=== PATIENT | male | born 2005 | race American Indian/Alaskan Native ===

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

== ENCOUNTER 2025-01-27 06:26 | Emergency (ER) | payer OTHER, MEDICAID ==
[~2025-01-27 06:26] MED LIST: 50% Dextrose in Water 50 ML Syringe IVPUSH PRN; Glucagon,Human Recombinant 1 MG Vial IM PRN
[2025-01-27] MEDS: Sodium Chloride 0.9% 1,000 ML IV ONE ×3 (06:26→08:06)
[2025-01-27] MEDS: Insulin Regular, Human 100 Units/ML 10 ML Vial IV ONE ×2 (06:26→12:11)
[2025-01-27 06:36] LABS: HEMATOCRIT 49.3 % (40.0-54.0); HEMOGLOBIN 16.3 g/dL (14.0-18.0); LYMPHOCYTES PERCENT AUTO 12.6 % (20.5-50.1); MEAN CORPUSCULAR HGB CONC 33.1 g/dL (33.0-35.0); MEAN CORPUSCULAR VOLUME 90.6 fL (80-100); MONOCYTES PERCENT AUTO 5.4 % (2-8); O2 DELIVERY DEVICE ROOM AIR; PLATELET COUNT,PLT 330 10^3/uL (150-450); RED BLOOD CELL COUNT 5.44 10^6/uL (4.6-6.2); WHITE BLOOD CELL COUNT,WBC 23.3 10^3/uL (5.0-10.0)
[2025-01-27 06:41] LABS: PCO2 VENOUS 31 mmHg (41-51); PH,VENOUS 7.05 (7.31-7.41); PO2 VENOUS 48 mmHg (35-42)
[2025-01-27 06:42] LABS: BASE EXCESS VENOUS -22.7 mmol/l ((-2)-(+3)); BICARBONATE,VENOUS 8 mmol/l (19-25)
[2025-01-27 07:00] LABS: KETONES,BLOOD MODERATE-40 mg/dL
[2025-01-27 07:10] LABS: ALANINE AMINOTRANSFERASE,ALT 21 U/L (16-63); ALBUMIN 3.9 g/dL (3.4-5.0); ALKALINE PHOSPHATASE 167 U/L (46-116); ASPARTATE AMNIOTRANSFERASE,AST 10 U/L (15-37); BILIRUBIN TOTAL 0.8 mg/dL (0.2-1.0); BLOOD UREA NITROGEN,BUN 21 mg/dL (7-18); CALCIUM 9.5 mg/dL (8.5-10.1); CHLORIDE,CL 90 mmol/L (98-107); CREATININE 1.91 mg/dL (0.70-1.30); LIPASE 10 U/L (16-77); POTASSIUM,K 5.9 mmol/L (3.5-5.1)
[2025-01-27 07:15] LABS: ANION GAP 34.9 mEq/L (7-13); CARBON DIOXIDE,CO2 10 mmol/L (21-32); SODIUM,NA 129 mmol/L (136-145)
[2025-01-27 07:16] LABS: ESTIMATED GFR 51 mL/min (>=60); ETHANOL BLOOD MEDICAL < 3 mg/dL (0); GLUCOSE RANDOM 599 mg/dL (70-99)
[2025-01-27 07:20] LABS: APPEARANCE,URINE CLEAR (CLEAR); BILIRUBIN,URINE NEGATIVE (NEGATIVE); COLOR,URINE LIGHT YELLOW (YELLOW); GLUCOSE,URINE 500 (NEGATIVE); KETONES,URINE >=160 (NEGATIVE); LEUKOCYTE ESTERASE,URINE NEGATIVE (NEGATIVE); NITRITE,URINE NEGATIVE (NEGATIVE); OCCULT BLOOD,URINE TRACE-INTACT (NEGATIVE); PH,URINE 5.5 (5.0-9.0); PROTEIN,URINE 30 (NEGATIVE); UROBILINOGEN,URINE 0.2 mg/dL (0.2-1.0)
[2025-01-27 07:21] LABS: AMPHETAMINES,URINE NEGATIVE (NEGATIVE); BARBITURATES,URINE NEGATIVE (NEGATIVE); BENZODIAZEPINE,URINE NEGATIVE (NEGATIVE); MDMA (ECSTASY), URINE NEGATIVE (NEGATIVE); METHADONE,URINE NEGATIVE (NEGATIVE); METHAMPHETAMINES,URINE NEGATIVE (NEGATIVE); OPIATES,URINE NEGATIVE (NEGATIVE); OXYCODONE,URINE NEGATIVE (NEGATIVE); PHENCYCLIDINE,URINE NEGATIVE (NEGATIVE); TCA,URINE NEGATIVE (NEGATIVE)
[2025-01-27 07:28] LABS: RBC,URINE 0-5 /HPF (0-5)
[2025-01-27 07:29] LABS: BACTERIA,URINE FEW /HPF (0-FEW/HPF); EPITHELIAL CELLS,URINE FEW /HPF (NOT SEEN); MUCUS,URINE RARE /LPF (NOT SEEN)
[2025-01-27 07:30] LABS: YEAST,URINE FEW /HPF (NOT SEEN)
[2025-01-27] MEDS: levETIRAcetam in NaCl (iso-os) 1,000 MG in Premix Bag 1 BAG IV ONE (08:12)
[2025-01-27] MEDS ORDERED: Glucagon,Human Recombinant 1 MG Vial IM PRN ×2 (08:51→11:34)
[2025-01-27] MEDS ORDERED: 50% Dextrose in Water 50 ML Syringe IVPUSH PRN ×2 (08:51→11:34)
[2025-01-27] MEDS: Insulin Regular, Human 100 Units/ML 10 ML Vial SUBCUT ONE (09:01)
[2025-01-27 09:12] LABS: O2 DELIVERY DEVICE ROOM AIR
[2025-01-27 09:16] LABS: BASE EXCESS VENOUS -26.5 mmol/l ((-2)-(+3)); BICARBONATE,VENOUS 6 mmol/l (19-25); O2 SATURATION VENOUS 52.9 % (60-80); PCO2 VENOUS 27 mmHg (41-51); PH,VENOUS 6.97 (7.31-7.41); PO2 VENOUS 42 mmHg (35-42)
[2025-01-27] MEDS: Cefepime 2 GM Vial IVPUSH ONE (09:29)
[2025-01-27 09:38] LABS: LACTIC ACID 2.8 mmol/L (0.4-2.0)
[2025-01-27 09:40] LABS: ANION GAP 33.3 mEq/L (7-13); BLOOD UREA NITROGEN,BUN 20 mg/dL (7-18); CALCIUM 8.4 mg/dL (8.5-10.1); CARBON DIOXIDE,CO2 8 mmol/L (21-32); CHLORIDE,CL 98 mmol/L (98-107); CREATININE 1.82 mg/dL (0.70-1.30); POTASSIUM,K 5.3 mmol/L (3.5-5.1); SODIUM,NA 134 mmol/L (136-145)
[2025-01-27 09:42] LABS: T4 FREE 0.9 ng/dL (0.76-1.46); TSH ULTRASENSITIVE 1.31 uIU/mL (0.36-3.74)
[2025-01-27] MEDS: DEXTROSE 5% IV ONE (09:49)
[2025-01-27] MEDS: SODIUM BICARBONATE IV ONE (09:49)
[2025-01-27] MEDS: WATER IV ONE (09:49)
[2025-01-27 09:51] LABS: ESTIMATED GFR 54 mL/min (>=60); GLUCOSE RANDOM 442 mg/dL (70-99)
[2025-01-27 10:00] LABS: CORONAVIRUS COVID-19 NAA NEGATIVE (NEGATIVE); INFLUENZA A NAA NEGATIVE (NEGATIVE); INFLUENZA B NAA NEGATIVE (NEGATIVE); RESPIRATORY SYNCYTIAL VIR NAA NEGATIVE (NEGATIVE)
[2025-01-27] MEDS: VANCOmycin 1.25 GM in Sodium Chloride 0.9% 250 ML IV ONE (10:09)
[2025-01-27] MEDS ORDERED: Flumazenil 0.1 MG/ML 5 ML MDV IVPUSH PRN (10:25)
[2025-01-27] MEDS: LORazepam 2 MG/ML SDV IVPUSH ONE (10:28)
[2025-01-27] MEDS: Ziprasidone Mesylate 20 MG Vial IM ONE (11:00)
[2025-01-27 11:05] LABS: O2 DELIVERY DEVICE ROOM AIR; PCO2 VENOUS 21 mmHg (41-51)
[2025-01-27 11:07] LABS: BASE EXCESS VENOUS -28.7 mmol/l ((-2)-(+3)); BICARBONATE,VENOUS 4 mmol/l (19-25); O2 SATURATION VENOUS 94.1 % (60-80); PH,VENOUS 6.95 (7.31-7.41); PO2 VENOUS 103 mmHg (35-42)
[2025-01-27] MEDS: Sodium Bicarbonate 8.4% 50 MEQ/50 ML Syringe IVPUSH ONE ×2 (11:10→13:40)
[2025-01-27] MEDS: dexmedeTOMIDine HCl 200 MCG/2 ML SDV IV ONE (11:16)
[2025-01-27] MEDS ORDERED: dexmedeTOMIDine HCl 200 MCG/2 ML SDV IV SCH (11:30)
[2025-01-27] MEDS ORDERED: SODIUM CHLORIDE 0.9% IV SCH (11:30)
[2025-01-27] MEDS ORDERED: DEXMEDETOMIDINE HCL IV SCH (11:30)
[2025-01-27] MEDS ORDERED: Insulin Regular in 0.9 % NACL 100 ML IV SCH (11:30)
[2025-01-27 11:32] LABS: ANION GAP 37.7 mEq/L (7-13); CALCIUM 8.4 mg/dL (8.5-10.1); CREATININE 1.83 mg/dL (0.70-1.30); POTASSIUM,K 5.7 mmol/L (3.5-5.1)
[2025-01-27 11:34] LABS: EST CRCL DRUG DOSING (CG) 64.93 mL/min
[2025-01-27] MEDS: Insulin Regular in 0.9 % NACL 100 ML IV SCH (11:36)
[2025-01-27] MEDS: Norepinephrine Bit/D5W Premix 250 ML IV SCH (11:40)
[2025-01-27] MEDS: Insulin Regular in 0.9 % NACL 100 ML ONE (11:42)
[2025-01-27] MEDS: Sodium Chloride 0.9% 1,000 ML IV SCH (11:42)
[2025-01-27 12:26] LABS: O2 DELIVERY DEVICE ROOM AIR
[2025-01-27 12:30] LABS: BASE EXCESS VENOUS -24.9 mmol/l ((-2)-(+3)); BICARBONATE,VENOUS 4 mmol/l (19-25); O2 SATURATION VENOUS 94.1 % (60-80); PCO2 VENOUS 15 mmHg (41-51); PO2 VENOUS 83 mmHg (35-42)
[2025-01-27] MEDS: Metoprolol Tartrate 5 MG/5 ML SDV ONE (12:54)
[2025-01-27] MEDS: diphenhydrAMINE 50 MG/ML SDV ONE (12:54)
[2025-01-27 12:55] LABS: ANION GAP 35.6 mEq/L (7-13); CALCIUM 8.1 mg/dL (8.5-10.1); CREATININE 1.88 mg/dL (0.70-1.30); EST CRCL DRUG DOSING (CG) 63.2 mL/min; POTASSIUM,K 4.6 mmol/L (3.5-5.1)
[2025-01-27 13:24] LABS: PROTEIN,CSF 40 mg/dL (15-45)
[2025-01-27 13:27] LABS: GLUCOSE,CSF 344 mg/dL (40-70)
[2025-01-27] MEDS: LORazepam 2 MG/ML SDV ONE (13:27)
[2025-01-27] MEDS: Ziprasidone Mesylate 20 MG Vial ONE (13:28)
[2025-01-27] MEDS: VANCOmycin 750 MG in Sodium Chloride 0.9% 250 ML IV ONE (13:33)
[2025-01-27 15:09] LABS: APPEARANCE CSF CLEAR; COLOR,CSF COLORLESS; SUPERNATANT APPEAR,CSF NO XANTHOCHROMIA; TUBE NUMBER,CSF 2
[2025-01-27 15:10] LABS: TUBE VOLUME,CSF 3; WBC,CSF 0
[2025-01-27 15:11] LABS: RBC,CSF 8.25
[2025-01-28] MEDS: Sodium Bicarbonate 8.4% 50 MEQ/50 ML SDV ONE (12:37)
[2025-01-30 18:43] LABS: VDRL, CSF Non Reactive (Non Reactive)
== END 2025-01-27 14:38 ==
LOC: DL.ED 06:26
DX: E10.10 Type 1 diabetes mellitus with ketoacidosis without coma (principal); D72.829 Elevated white blood cell count, unspecified; R41.82 Altered mental status, unspecified; Z79.4 Long term (current) use of insulin; Z79.899 Other long term (current) drug therapy; Z86.16 Personal history of COVID-19
CPT/HCPCS: 0241U; 36415; 36556; 51702; 62270; 70450; 71045; 74176; 80048; 80053; 80164; 80305; 80307; 81001; 82009; 82803; 82945; 82947; 83605; 83690; 83735; 84145; 84157; 84439; 84443; 84484; 85025; 86592; 86788; 87040; 87070; 87102; 87205; 87483; 89050; 93005; 93010; 96361; 96365; 96366; 96367; 96368; 96372; 96375; 96376; 99285; 99291; 99292; A9270; C1751; J0692; J1953; J2060; J3370; J3371; J3486; J7030; J7050; J7060; J3490; J7070

== ENCOUNTER 2025-03-14 13:04 | Inpatient (IN) | payer MEDICAID, OTHER ==
[2025-03-14] MEDS ORDERED: Sodium Chloride 0.9% 10 ML Syringe FLUSH PRN (13:31)
[2025-03-14 14:09] LABS: BASOPHILS PERCENT AUTO 0.2 % (0.0-1.0); HEMATOCRIT 48.5 % (40.0-54.0); LYMPHOCYTES PERCENT AUTO 7.3 % (20.5-50.1); MEAN CORPUSCULAR HEMOGLOBIN 32.1 pg (27.0-34.0); MEAN CORPUSCULAR HGB CONC 35.1 g/dL (33.0-35.0); MEAN CORPUSCULAR VOLUME 91.7 fL (80-100); MONOCYTES PERCENT AUTO 3.1 % (2-8); NEUTROPHILS PERCENT AUTO 89.4 % (42.2-75.2); PLATELET COUNT,PLT 199 10^3/uL (150-450); RED BLOOD CELL COUNT 5.29 10^6/uL (4.6-6.2); WHITE BLOOD CELL COUNT,WBC 13.1 10^3/uL (5.0-10.0)
[2025-03-14 14:10] LABS: O2 DELIVERY DEVICE ROOM AIR
[2025-03-14] MEDS: levETIRAcetam in NaCl (iso-os) 1,500 MG in Premix Bag 1 BAG IV ONE (14:17)
[2025-03-14 14:18] LABS: BASE EXCESS VENOUS -18.6 mmol/l ((-2)-(+3)); BICARBONATE,VENOUS 12 mmol/l (19-25); O2 SATURATION VENOUS 42.2 % (60-80); PCO2 VENOUS 42 mmHg (41-51); PO2 VENOUS 34 mmHg (35-42)
[2025-03-14 14:19] LABS: PH,VENOUS 7.08 (7.31-7.41)
[2025-03-14 14:29] LABS: A/G RATIO 0.9; ALANINE AMINOTRANSFERASE,ALT 26 U/L (16-63); ALBUMIN 3.8 g/dL (3.4-5.0); ALKALINE PHOSPHATASE 173 U/L (46-116); ANION GAP 29.8 mEq/L (7-13); ASPARTATE AMNIOTRANSFERASE,AST 14 U/L (15-37); BILIRUBIN TOTAL 0.6 mg/dL (0.2-1.0); BLOOD UREA NITROGEN,BUN 17 mg/dL (7-18); BUN/CREATININE RATIO 11.4 (No establ ref range); CALCIUM 9.4 mg/dL (8.5-10.1); CARBON DIOXIDE,CO2 13 mmol/L (21-32); CHLORIDE,CL 98 mmol/L (98-107); CREATININE 1.49 mg/dL (0.70-1.30); EST CRCL DRUG DOSING (CG) 90.12 mL/min; ESTIMATED GFR 69 mL/min (>=60); ETHANOL BLOOD MEDICAL < 3 mg/dL (0); GLUCOSE RANDOM 393 mg/dL (70-99); POTASSIUM,K 5.8 mmol/L (3.5-5.1); PROTEIN TOTAL,TP 7.8 g/dL (6.4-8.2); SODIUM,NA 135 mmol/L (136-145)
[2025-03-14 14:32] LABS: LACTIC ACID 1.9 mmol/L (0.4-2.0)
[2025-03-14] MEDS: Sodium Chloride 0.9% 1,000 ML IV ONE ×2 (14:51→16:15)
[2025-03-14] MEDS ORDERED: 50% Dextrose in Water 50 ML Syringe IVPUSH PRN ×3 (15:03→16:38)
[2025-03-14] MEDS ORDERED: Glucagon,Human Recombinant 1 MG Vial IM PRN ×3 (15:03→16:38)
[2025-03-14] MEDS: Insulin Regular, Human 100 Units/ML 10 ML Vial IV ONE (15:10)
[2025-03-14] MEDS: Insulin Regular in 0.9 % NACL 100 ML IV SCH (15:40)
[2025-03-14 15:53] LABS: APPEARANCE,URINE CLEAR (CLEAR); BILIRUBIN,URINE NEGATIVE (NEGATIVE); COLOR,URINE YELLOW (YELLOW); GLUCOSE,URINE 500 (NEGATIVE); KETONES,URINE >=160 (NEGATIVE); LEUKOCYTE ESTERASE,URINE NEGATIVE (NEGATIVE); NITRITE,URINE NEGATIVE (NEGATIVE); OCCULT BLOOD,URINE TRACE-LYSED (NEGATIVE); PH,URINE 5.5 (5.0-9.0); PROTEIN,URINE 30 (NEGATIVE); UROBILINOGEN,URINE 0.2 mg/dL (0.2-1.0)
[2025-03-14 15:56] LABS: AMPHETAMINES,URINE NEGATIVE (NEGATIVE); BARBITURATES,URINE NEGATIVE (NEGATIVE); BENZODIAZEPINE,URINE NEGATIVE (NEGATIVE); MDMA (ECSTASY), URINE NEGATIVE (NEGATIVE); METHADONE,URINE NEGATIVE (NEGATIVE); METHAMPHETAMINES,URINE NEGATIVE (NEGATIVE); OPIATES,URINE NEGATIVE (NEGATIVE); OXYCODONE,URINE NEGATIVE (NEGATIVE); PHENCYCLIDINE,URINE NEGATIVE (NEGATIVE); TCA,URINE NEGATIVE (NEGATIVE)
[2025-03-14] MEDS ORDERED: Ondansetron 4 MG/2 ML SDV IVPUSH PRN (16:04)
[2025-03-14] MEDS ORDERED: Albuterol/Ipratropium 3.0-0.5 MG/3 ML Neb Soln NEB PRN (16:04)
[2025-03-14] MEDS ORDERED: Acetaminophen 325 MG Tab PO PRN (16:04)
[2025-03-14] MEDS ORDERED: Metoclopramide 10 MG/2 ML SDV IV PRN (16:04)
[2025-03-14] MEDS ORDERED: Acetaminophen/HYDROcodone 325-5 MG Tab PO PRN (16:04)
[2025-03-14] MEDS ORDERED: HYDROmorphone 0.5 MG/0.5 ML Syringe IVPUSH PRN (16:04)
[2025-03-14] MEDS ORDERED: Melatonin 3 MG Tab PO PRN (16:04)
[2025-03-14] MEDS ORDERED: Naloxone 2 MG/2 ML Syringe IVPUSH PRN (16:04)
[2025-03-14 16:11] LABS: BACTERIA,URINE FEW /HPF (0-FEW/HPF); EPITHELIAL CELLS,URINE FEW /HPF (NOT SEEN); MUCUS,URINE FEW /LPF (NOT SEEN); RBC,URINE 0-5 /HPF (0-5)
[2025-03-14 16:12] LABS: YEAST,URINE RARE /HPF (NOT SEEN)
[2025-03-14] MEDS ORDERED: LORazepam 2 MG/ML SDV IVPUSH PRN (16:25)
[2025-03-14] MEDS: Insulin Glarg,Human.Rec.Analog 100 Unit/ML 10 ML Vial SUBCUT ONE (17:00)
[2025-03-14 17:53] LABS: CALCIUM 8.3 mg/dL (8.5-10.1); CREATININE 1.44 mg/dL (0.70-1.30); EST CRCL DRUG DOSING (CG) 90.56 mL/min; MAGNESIUM 1.9 mg/dL (1.8-2.4); PHOSPHORUS 3.5 mg/dL (2.6-4.7)
[2025-03-14] MEDS: Dextrose 10% in Water 500 ML IV ONE ×2 (19:12→22:22)
[2025-03-14] MEDS: Lactated Ringers 1,000 ML IV SCH (19:43)
[2025-03-14] MEDS: HYDROmorphone 1 MG/ML Syringe IVPUSH STA (20:08)
[2025-03-14] MEDS: Sodium Bicarbonate 8.4% 50 MEQ/50 ML Syringe IVPUSH ONE ×2 (21:48→22:23)
[2025-03-14] MEDS: Dextrose 10% in Water 500 ML IV SCH (21:48)
[2025-03-14] MEDS: levETIRAcetam 500 MG Tab PO STA ×2 (21:48)
[2025-03-14 22:10] LABS: CALCIUM 8.1 mg/dL (8.5-10.1); CREATININE 1.22 mg/dL (0.70-1.30); EST CRCL DRUG DOSING (CG) 106.89 mL/min
[2025-03-14] MEDS: Pantoprazole 40 MG Vial IVPUSH ONE (22:14)
[2025-03-14] MEDS: Potassium Chloride 20 MEQ in Premix Bag 1 BAG IV ONE (22:14)
[2025-03-14] MEDS: levETIRAcetam in NaCl (iso-os) 2,000 MG in Premix Bag 1 BAG IV SCH (22:23)
[2025-03-15 00:14] LABS: ANION GAP 11.2 mEq/L (7-13); CALCIUM 8.2 mg/dL (8.5-10.1); CREATININE 1.27 mg/dL (0.70-1.30); EST CRCL DRUG DOSING (CG) 102.69 mL/min; MAGNESIUM 1.5 mg/dL (1.8-2.4); PHOSPHORUS 2.7 mg/dL (2.6-4.7); POTASSIUM,K 4.2 mmol/L (3.5-5.1)
[2025-03-15] MEDS ORDERED: hydrALAZINE 20 MG/ML SDV IVPUSH PRN (00:30)
[2025-03-15] MEDS: Insulin Glarg,Human.Rec.Analog 100 Unit/ML 10 ML Vial SUBCUT ONE (00:30)
[2025-03-15] MEDS ORDERED: Metoprolol Tartrate 5 MG/5 ML SDV IVPUSH PRN (00:30)
[2025-03-15] MEDS: Magnesium Sulfate 2 GM/50 mL 2 GM in Premix Bag 1 BAG IV ONE (00:52)
[2025-03-15 06:42] LABS: BASOPHILS PERCENT AUTO 0.2 % (0.0-1.0); HEMATOCRIT 36.5 % (40.0-54.0); HEMOGLOBIN 12.6 g/dL (14.0-18.0); LYMPHOCYTES PERCENT AUTO 29.6 % (20.5-50.1); MEAN CORPUSCULAR HEMOGLOBIN 31.4 pg (27.0-34.0); MEAN CORPUSCULAR HGB CONC 34.5 g/dL (33.0-35.0); NEUTROPHILS PERCENT AUTO 61.2 % (42.2-75.2); PLATELET COUNT,PLT 158 10^3/uL (150-450); RED BLOOD CELL COUNT 4.01 10^6/uL (4.6-6.2); WHITE BLOOD CELL COUNT,WBC 6.1 10^3/uL (5.0-10.0)
[2025-03-15] MEDS ORDERED: levETIRAcetam 500 MG Tab PO SCH (09:00)
[2025-03-15] MEDS: Pantoprazole 40 MG Vial IVPUSH SCH (09:30)
[2025-03-15] MEDS: Insulin Lispro 100 Units/ML 3 ML Vial SUBCUT SCH (09:37)
[2025-03-15] MEDS ORDERED: Glucagon,Human Recombinant 1 MG Vial IM PRN (11:13)
[2025-03-15] MEDS ORDERED: 50% Dextrose in Water 50 ML Syringe IVPUSH PRN (11:13)
[2025-03-15] MEDS: Insulin Glarg,Human.Rec.Analog 100 Unit/ML 10 ML Vial SUBCUT SCH (13:04)
[2025-03-17 20:41] LABS: KEPPRA <2 ug/mL (10-40)
== END 2025-03-15 18:15 | disposition home or self-care (01) | DRG 638 ==
LOC: DL.ED 13:04 → DL.MS 15:41 → UNDOADMIN 15:48
PROVIDERS: ADMIT Internal Medicine; ATTEND Internal Medicine
DX: E10.10 Type 1 diabetes mellitus with ketoacidosis without coma (principal); E87.1 Hypo-osmolality and hyponatremia; N17.9 Acute kidney failure, unspecified; Z68.55 Body mass index [BMI] pediatric, 120% of the 95th percentile for age to less than 140% of the 95th percentile for age; G40.909 Epilepsy, unspecified, not intractable, without status epilepticus; H54.7 Unspecified visual loss; F41.9 Anxiety disorder, unspecified; E86.0 Dehydration; E87.5 Hyperkalemia; E66.812 Obesity, class 2; E83.42 Hypomagnesemia; Z86.16 Personal history of COVID-19; Z79.899 Other long term (current) drug therapy; Z90.49 Acquired absence of other specified parts of digestive tract; Z91.148 Patient's other noncompliance with medication regimen for other reason
CPT/HCPCS: 36415; 70450; 71045; 80048; 80053; 80177; 80305-QW; 80307; 81001; 82009; 82140; 82550; 82803; 82947; 83036; 83605; 83735; 84100; 84132; 85025; 86140; 87040; 93005; A9270-GY; C1751; J1171; J1815-GY; J1953; J2470; J3475; J3480; J3490; J7030; J7120

== ENCOUNTER 2025-05-27 11:27 | Observation (INO) | payer MEDICAID ==
[2025-05-27 12:01] LABS: BASOPHILS PERCENT AUTO 0.1 % (0.0-1.0); EOSINOPHILS PERCENT AUTO 0.6 % (1.0-3.0); LYMPHOCYTES PERCENT AUTO 14.5 % (20.5-50.1); MONOCYTES PERCENT AUTO 3.6 % (2-8); NEUTROPHILS PERCENT AUTO 81.2 % (42.2-75.2); PLATELET COUNT,PLT 180 10^3/uL (150-450); RED BLOOD CELL COUNT 4.77 10^6/uL (4.6-6.2); WHITE BLOOD CELL COUNT,WBC 8.1 10^3/uL (5.0-10.0)
[2025-05-27 12:12] LABS: KETONES,BLOOD NEGATIVE
[2025-05-27 12:24] LABS: A/G RATIO 0.9; ALANINE AMINOTRANSFERASE,ALT 38 U/L (16-63); ASPARTATE AMNIOTRANSFERASE,AST 24 U/L (15-37); BILIRUBIN DIRECT 0.2 mg/dL (0.0-0.2); BILIRUBIN INDIRECT 1.0; BILIRUBIN TOTAL 1.2 mg/dL (0.2-1.0); BLOOD UREA NITROGEN,BUN 12 mg/dL (7-18); CARBON DIOXIDE,CO2 22 mmol/L (21-32); CHLORIDE,CL 101 mmol/L (98-107); CREATININE 1.06 mg/dL (0.70-1.30); EST CRCL DRUG DOSING (CG) 123.03 mL/min; POTASSIUM,K 5.3 mmol/L (3.5-5.1); PROTEIN TOTAL,TP 7.1 g/dL (6.4-8.2); SODIUM,NA 137 mmol/L (136-145)
[2025-05-27 12:25] LABS: ESTIMATED GFR 104 mL/min (>=60)
[2025-05-27 12:26] LABS: GLUCOSE RANDOM 430 mg/dL (70-99)
[2025-05-27] MEDS ORDERED: 50% Dextrose in Water 50 ML Syringe IVPUSH PRN (12:40)
[2025-05-27] MEDS: Insulin Regular, Human 100 Units/ML 10 ML Vial SUBCUT ONE (13:11)
[2025-05-27 13:55] LABS: APPEARANCE,URINE CLEAR (CLEAR); GLUCOSE,URINE 500 (NEGATIVE); OCCULT BLOOD,URINE NEGATIVE (NEGATIVE)
[2025-05-27 13:58] LABS: AMPHETAMINES,URINE NEGATIVE (NEGATIVE); BARBITURATES,URINE NEGATIVE (NEGATIVE); MDMA (ECSTASY), URINE NEGATIVE (NEGATIVE); METHAMPHETAMINES,URINE NEGATIVE (NEGATIVE); OPIATES,URINE NEGATIVE (NEGATIVE); OXYCODONE,URINE NEGATIVE (NEGATIVE); PHENCYCLIDINE,URINE NEGATIVE (NEGATIVE); TCA,URINE NEGATIVE (NEGATIVE)
[2025-05-27 14:09] LABS: EPITHELIAL CELLS,URINE RARE /HPF (NOT SEEN)
[2025-05-27 14:51] LABS: GAMMA GLUTAMYL TRANSFERASE,GGT 16.0 U/L (15-85); POTASSIUM,K 4.6 mmol/L (3.5-5.1)
[2025-05-27 16:10] LABS: CREATINE KINASE,CK 184.0 U/L (39-308); PHOSPHORUS 3.3 mg/dL (2.6-4.7)
[2025-05-27 17:08] LABS: O2 DELIVERY DEVICE ROOM AIR; PCO2 ARTERIAL 40 mmHg (35-45); PH,ARTERIAL 7.38 (7.35-7.45)
[2025-05-27 17:09] LABS: BASE EXCESS ARTERIAL -2 mmol/L ((-2)-(+3)); BICARBONATE,ARTERIAL 22.8 mmol/L (22-26); O2 SATURATION ARTERIAL 97 % (95-100); PO2 ARTERIAL 91 mmHg (70-100)
[2025-05-27] MEDS: Heparin Sodium 5,000 Units/ML Vial SUBCUT SCH (21:50)
[2025-05-28 06:26] LABS: BASOPHILS PERCENT AUTO 0.2 % (0.0-1.0); EOSINOPHILS PERCENT AUTO 1.5 % (1.0-3.0); LYMPHOCYTES PERCENT AUTO 44.9 % (20.5-50.1); MONOCYTES PERCENT AUTO 4.6 % (2-8); NEUTROPHILS PERCENT AUTO 48.8 % (42.2-75.2); PLATELET COUNT,PLT 150 10^3/uL (150-450); RED BLOOD CELL COUNT 4.33 10^6/uL (4.6-6.2); WHITE BLOOD CELL COUNT,WBC 5.3 10^3/uL (5.0-10.0)
[2025-05-28 06:47] LABS: BLOOD UREA NITROGEN,BUN 11.0 mg/dL (7-18); CARBON DIOXIDE,CO2 26.0 mmol/L (21-32); CHLORIDE,CL 105.0 mmol/L (98-107); CREATININE 0.75 mg/dL (0.70-1.30); EST CRCL DRUG DOSING (CG) 173.88 mL/min; GLUCOSE RANDOM 346.0 mg/dL (70-99); POTASSIUM,K 4.3 mmol/L (3.5-5.1); SODIUM,NA 141.0 mmol/L (136-145)
[2025-05-28 06:54] LABS: ESTIMATED GFR 133.0 mL/min (>=60)
[2025-05-28] MEDS ORDERED: 50% Dextrose in Water 50 ML Syringe IVPUSH PRN (07:39)
[2025-05-28] MEDS: Insulin Regular, Human 100 Units/ML 10 ML Vial IV ONE (09:10)
[2025-05-28] MEDS: Divalproex Sodium Delayed-Release 250 MG Tab.CR PO SCH (09:19)
[2025-05-28] MEDS: Insulin Glarg,Human.Rec.Analog 100 Unit/ML 10 ML Vial SUBCUT SCH (09:30)
== END 2025-05-28 17:33 | disposition home or self-care (01) ==
LOC: DL.ED 11:27 → DL.MS 13:31 → UNDOADMOB 14:02
PROVIDERS: ADMIT Internal Medicine; ATTEND Internal Medicine
DX: G40.909 Epilepsy, unspecified, not intractable, without status epilepticus (principal); E87.20 Acidosis, unspecified; E80.6 Other disorders of bilirubin metabolism; R41.82 Altered mental status, unspecified; E10.65 Type 1 diabetes mellitus with hyperglycemia; F41.9 Anxiety disorder, unspecified; E66.9 Obesity, unspecified; Z79.4 Long term (current) use of insulin; Z79.899 Other long term (current) drug therapy
CPT/HCPCS: 36415; 36600; 70450; 70486; 71045; 80048; 80076; 80164; 80305; 80307; 81001; 82009; 82533; 82550; 82800; 82803; 82947; 82977; 83735; 84100; 84132; 85025; 87040; 96360; 99285; A9270; J1630; J1644; J1815; J1953; J3360; J7030; 96361; 96372; 96374; 96375; 96376; 99239; G0378

== ENCOUNTER 2025-06-18 09:23 | Inpatient (IN) | payer MEDICAID ==
[2025-06-18 09:58] LABS: O2 DELIVERY DEVICE ROOM AIR
[2025-06-18 10:01] LABS: BASE EXCESS VENOUS -23.4 mmol/l ((-2)-(+3)); BICARBONATE,VENOUS 8 mmol/l (19-25); O2 SATURATION VENOUS 54.1 % (60-80); PCO2 VENOUS 35 mmHg (41-51); PH,VENOUS 7.00 (7.31-7.41); PLATELET COUNT,PLT 301 10^3/uL (150-450); PO2 VENOUS 49 mmHg (35-42); RED BLOOD CELL COUNT 4.60 10^6/uL (4.6-6.2); WHITE BLOOD CELL COUNT,WBC 24.5 10^3/uL (5.0-10.0)
[2025-06-18 10:06] LABS: BASOPHILS PERCENT AUTO 0.2 % (0.0-1.0); EOSINOPHILS PERCENT AUTO 0.0 % (1.0-3.0); LYMPHOCYTES PERCENT AUTO 9.8 % (20.5-50.1); MONOCYTES PERCENT AUTO 10.2 % (2-8); NEUTROPHILS PERCENT AUTO 79.8 % (42.2-75.2)
[2025-06-18] MEDS ORDERED: Sodium Chloride 0.9% 10 ML Syringe FLUSH PRN (10:07)
[2025-06-18 10:22] LABS: BAND PERCENT MAN 7 %; LYMPHOCYTES PERCENT MAN 10 % (20-50); MONOCYTES PERCENT MAN 9 % (2-8); SEG NEUTROPHILS PERCENT MAN 74 % (42-75)
[2025-06-18 10:27] LABS: A/G RATIO 0.9; ALANINE AMINOTRANSFERASE,ALT 23 U/L (16-63); ASPARTATE AMNIOTRANSFERASE,AST 16 U/L (15-37); BILIRUBIN TOTAL 0.8 mg/dL (0.2-1.0); BLOOD UREA NITROGEN,BUN 20 mg/dL (7-18); CARBON DIOXIDE,CO2 8 mmol/L (21-32); CHLORIDE,CL 93 mmol/L (98-107); CREATININE 1.65 mg/dL (0.70-1.30); EST CRCL DRUG DOSING (CG) 74.35 mL/min; PHOSPHORUS 7.3 mg/dL (2.6-4.7); PROTEIN TOTAL,TP 7.8 g/dL (6.4-8.2); SODIUM,NA 135 mmol/L (136-145)
[2025-06-18 10:40] LABS: KETONES,BLOOD MOD
[2025-06-18 10:47] LABS: ESTIMATED GFR 61 mL/min (>=60); LACTIC ACID 4.5 mmol/L (0.4-2.0); POTASSIUM,K 6.7 mmol/L (3.5-5.1)
[2025-06-18 10:48] LABS: GLUCOSE RANDOM 737 mg/dL (70-99)
[2025-06-18] MEDS ORDERED: 50% Dextrose in Water 50 ML Syringe IVPUSH PRN ×2 (11:07→19:48)
[2025-06-18] MEDS ORDERED: Metoprolol Tartrate 5 MG/5 ML SDV IVPUSH PRN (11:08)
[2025-06-18] MEDS ORDERED: hydrALAZINE 20 MG/ML SDV IVPUSH PRN (11:08)
[2025-06-18] MEDS ORDERED: Acetaminophen/HYDROcodone 325-5 MG Tab PO PRN (11:11)
[2025-06-18] MEDS: Ondansetron 4 MG/2 ML SDV IVPUSH PRN (11:24)
[2025-06-18] MEDS: Calcium Gluconate 10% 1 GM/10 ML SDV IVPUSH ONE (11:26)
[2025-06-18] MEDS: Sodium Bicarbonate 8.4% 50 MEQ/50 ML SDV ONE (11:27)
[2025-06-18] MEDS: Insulin Glarg,Human.Rec.Analog 100 Unit/ML 10 ML Vial SUBCUT ONE ×2 (11:28→20:20)
[2025-06-18] MEDS: Insulin Regular, Human 100 Units/ML 10 ML Vial IV ONE ×2 (11:31→16:00)
[2025-06-18] MEDS ORDERED: Flumazenil 0.1 MG/ML 5 ML MDV IVPUSH PRN (11:46)
[2025-06-18] MEDS: Lactated Ringers 1,000 ML IV ONE (11:47)
[2025-06-18] MEDS: Scopalamine 1mg/3day Transdermal Patch TOP ONE (11:49)
[2025-06-18] MEDS ORDERED: Promethazine 25 MG/ML SDV IM PRN (11:58)
[2025-06-18] MEDS: Lactated Ringers 3,000 ML IV ONE (12:57)
[2025-06-18] MEDS: Levofloxacin/Dextrose 5%-Water 750 MG in Premix Bag 1 BAG IV ONE (13:19)
[2025-06-18 13:46] LABS: APPEARANCE,URINE CLEAR (CLEAR); GLUCOSE,URINE 500 (NEGATIVE); OCCULT BLOOD,URINE SMALL (NEGATIVE)
[2025-06-18 14:31] LABS: EPITHELIAL CELLS,URINE RARE /HPF (NOT SEEN)
[2025-06-18 14:50] LABS: CARBON DIOXIDE,CO2 10.0 mmol/L (21-32); CHLORIDE,CL 104.0 mmol/L (98-107); POTASSIUM,K 4.8 mmol/L (3.5-5.1); SODIUM,NA 146.0 mmol/L (136-145)
[2025-06-18 14:51] LABS: BLOOD UREA NITROGEN,BUN 18.0 mg/dL (7-18); CREATININE 1.6 mg/dL (0.70-1.30); EST CRCL DRUG DOSING (CG) 76.68 mL/min; ESTIMATED GFR 63.0 mL/min (>=60); GLUCOSE RANDOM 295.0 mg/dL (70-99)
[2025-06-18] MEDS: Lactated Ringers 2,000 ML IV ONE (15:56)
[2025-06-18 18:38] LABS: BLOOD UREA NITROGEN,BUN 15.0 mg/dL (7-18); CARBON DIOXIDE,CO2 23.0 mmol/L (21-32); CHLORIDE,CL 109.0 mmol/L (98-107); CREATININE 1.42 mg/dL (0.70-1.30); EST CRCL DRUG DOSING (CG) 86.39 mL/min; GLUCOSE RANDOM 183.0 mg/dL (70-99); POTASSIUM,K 3.9 mmol/L (3.5-5.1); SODIUM,NA 144.0 mmol/L (136-145)
[2025-06-18 18:43] LABS: ESTIMATED GFR 73.0 mL/min (>=60)
[2025-06-18] MEDS: Potassium Chloride 20 MEQ in Premix Bag 1 BAG IV ONE ×2 (20:05→22:57)
[2025-06-18] MEDS ORDERED: Magnesium Sulfate 2 GM/50 mL 2 GM in Premix Bag 1 BAG IV ONE (21:00)
[2025-06-18 22:20] LABS: BLOOD UREA NITROGEN,BUN 13.0 mg/dL (7-18); CARBON DIOXIDE,CO2 29.0 mmol/L (21-32); CHLORIDE,CL 109.0 mmol/L (98-107); CREATININE 1.33 mg/dL (0.70-1.30); EST CRCL DRUG DOSING (CG) 92.47 mL/min; GLUCOSE RANDOM 142.0 mg/dL (70-99); SODIUM,NA 144.0 mmol/L (136-145)
[2025-06-18 22:33] LABS: ESTIMATED GFR 79.0 mL/min (>=60)
[2025-06-18 22:34] LABS: POTASSIUM,K 3.6 mmol/L (3.5-5.1)
[2025-06-19] MEDS: 50% Dextrose in Water 50 ML Syringe IVPUSH PRN (00:45)
[2025-06-19] MEDS: Potassium Chloride 20 MEQ in Premix Bag 1 BAG IV ONE (02:09)
[2025-06-19] MEDS: Magnesium Sulfate 2 GM/50 mL 2 GM in Premix Bag 1 BAG IV ONE (03:03)
[2025-06-19 06:42] LABS: BASOPHILS PERCENT AUTO 0.2 % (0.0-1.0); EOSINOPHILS PERCENT AUTO 0.0 % (1.0-3.0); LYMPHOCYTES PERCENT AUTO 22.4 % (20.5-50.1); MONOCYTES PERCENT AUTO 7.8 % (2-8); NEUTROPHILS PERCENT AUTO 69.6 % (42.2-75.2); PLATELET COUNT,PLT 196 10^3/uL (150-450); RED BLOOD CELL COUNT 3.63 10^6/uL (4.6-6.2); WHITE BLOOD CELL COUNT,WBC 10.3 10^3/uL (5.0-10.0)
[2025-06-19 07:11] LABS: ALANINE AMINOTRANSFERASE,ALT 15.0 U/L (16-63); ASPARTATE AMNIOTRANSFERASE,AST 9.0 U/L (15-37); BILIRUBIN TOTAL 0.4 mg/dL (0.2-1.0); BLOOD UREA NITROGEN,BUN 10.0 mg/dL (7-18); CARBON DIOXIDE,CO2 23.0 mmol/L (21-32); CHLORIDE,CL 107.0 mmol/L (98-107); CREATININE 1.22 mg/dL (0.70-1.30); EST CRCL DRUG DOSING (CG) 100.8 mL/min; GLUCOSE RANDOM 319.0 mg/dL (70-99); POTASSIUM,K 4.0 mmol/L (3.5-5.1); PROTEIN TOTAL,TP 5.2 g/dL (6.4-8.2); SODIUM,NA 142.0 mmol/L (136-145)
[2025-06-19 07:22] LABS: A/G RATIO 0.79; ESTIMATED GFR 88.0 mL/min (>=60)
[2025-06-19] MEDS: Levofloxacin/Dextrose 5%-Water 750 MG in Premix Bag 1 BAG IV SCH (09:19)
[2025-06-19] MEDS: Insulin Glarg,Human.Rec.Analog 100 Unit/ML 10 ML Vial SUBCUT SCH (09:25)
== END 2025-06-20 14:50 | disposition home or self-care (01) | DRG 871 ==
LOC: DL.ED 09:23 → DL.MS 10:01
PROVIDERS: ADMIT Internal Medicine; ATTEND Internal Medicine
DX: A41.9 Sepsis, unspecified organism (principal); E10.10 Type 1 diabetes mellitus with ketoacidosis without coma; G93.41 Metabolic encephalopathy; J69.0 Pneumonitis due to inhalation of food and vomit; E87.1 Hypo-osmolality and hyponatremia; N17.9 Acute kidney failure, unspecified; H54.7 Unspecified visual loss; F41.9 Anxiety disorder, unspecified; G43.909 Migraine, unspecified, not intractable, without status migrainosus; E87.5 Hyperkalemia; E83.39 Other disorders of phosphorus metabolism; E83.41 Hypermagnesemia; E86.0 Dehydration; E66.812 Obesity, class 2; Z79.899 Other long term (current) drug therapy; Z90.49 Acquired absence of other specified parts of digestive tract; Z86.16 Personal history of COVID-19; Z68.39 Body mass index [BMI] 39.0-39.9, adult
CPT/HCPCS: 36415; 51702; 80048; 80053; 81001; 82009; 82803; 82947; 83036; 83605; 83735; 84100; 85025; 86140; 87040; 93005; 93010; 99238; 99285; A9270-GY; J0612; J1171; J1650; J1815-GY; J1956; J2405; J2470; J3475; J3480; J3490; J7030; J7042; J7070; J7120

== ENCOUNTER 2025-08-24 06:28 | Inpatient (IN) | payer MEDICAID ==
[2025-08-24] MEDS: LORazepam 2 MG/ML SDV ONE ×2 (06:16→07:14)
[2025-08-24] MEDS: LORazepam 2 MG/ML SDV IVPUSH ONE ×2 (06:16→06:50)
[2025-08-24 06:24] LABS: PLATELET COUNT,PLT 347 10^3/uL (150-450); RED BLOOD CELL COUNT 3.54 10^6/uL (4.6-6.2); WHITE BLOOD CELL COUNT,WBC 28.8 10^3/uL (5.0-10.0)
[2025-08-24 06:25] LABS: O2 DELIVERY DEVICE ROOM AIR
[2025-08-24 06:27] LABS: BASE EXCESS VENOUS -26.6 mmol/l ((-2)-(+3)); BICARBONATE,VENOUS 6 mmol/l (19-25); O2 SATURATION VENOUS 58.3 % (60-80); PCO2 VENOUS 29 mmHg (41-51); PO2 VENOUS 53 mmHg (35-42)
[~2025-08-24 06:28] MED LIST changes: -50% Dextrose in Water 50 ML Syringe IVPUSH PRN; -Glucagon,Human Recombinant 1 MG Vial IM PRN; +Sodium Chloride 0.9% 10 ML Syringe FLUSH PRN
[2025-08-24 06:30] LABS: BASOPHILS PERCENT AUTO 0.3 % (0.0-1.0); EOSINOPHILS PERCENT AUTO 0.0 % (1.0-3.0); LYMPHOCYTES PERCENT AUTO 15.4 % (20.5-50.1); MONOCYTES PERCENT AUTO 11.5 % (2-8); NEUTROPHILS PERCENT AUTO 72.8 % (42.2-75.2); PH,VENOUS 6.92 (7.31-7.41)
[2025-08-24 06:51] LABS: ALANINE AMINOTRANSFERASE,ALT 89 U/L (16-63); ASPARTATE AMNIOTRANSFERASE,AST 166 U/L (15-37); BILIRUBIN TOTAL 0.5 mg/dL (0.2-1.0); BLOOD UREA NITROGEN,BUN 21 mg/dL (7-18); CHLORIDE,CL 89 mmol/L (98-107); CREATININE 2.06 mg/dL (0.70-1.30); POTASSIUM,K 6.1 mmol/L (3.5-5.1); PROTEIN TOTAL,TP 7.2 g/dL (6.4-8.2); SODIUM,NA 132 mmol/L (136-145)
[2025-08-24 07:08] LABS: A/G RATIO 0.60; CARBON DIOXIDE,CO2 8 mmol/L (21-32); ESTIMATED GFR 47 mL/min (>=60); ETHANOL BLOOD MEDICAL < 3 mg/dL (0); GLUCOSE RANDOM 942 mg/dL (70-99)
[2025-08-24] MEDS ORDERED: 50% Dextrose in Water 50 ML Syringe IVPUSH PRN ×2 (07:09→07:45)
[2025-08-24 07:10] LABS: AMPHETAMINES,URINE NEGATIVE (NEGATIVE); BARBITURATES,URINE NEGATIVE (NEGATIVE); MDMA (ECSTASY), URINE NEGATIVE (NEGATIVE); METHAMPHETAMINES,URINE NEGATIVE (NEGATIVE); OPIATES,URINE NEGATIVE (NEGATIVE); OXYCODONE,URINE NEGATIVE (NEGATIVE); PHENCYCLIDINE,URINE NEGATIVE (NEGATIVE); TCA,URINE NEGATIVE (NEGATIVE)
[2025-08-24 07:15] LABS: LYMPHOCYTES PERCENT MAN 15 % (20-50); MONOCYTES PERCENT MAN 13 % (2-8); SEG NEUTROPHILS PERCENT MAN 72 % (42-75)
[2025-08-24 07:54] LABS: APPEARANCE,URINE CLEAR (CLEAR); GLUCOSE,URINE >=1000 (NEGATIVE); OCCULT BLOOD,URINE LARGE (NEGATIVE)
[2025-08-24] MEDS: Insulin Regular, Human 100 Units/ML 10 ML Vial IV ONE (07:54)
[2025-08-24 08:24] LABS: BASE EXCESS VENOUS -29.9 mmol/l ((-2)-(+3)); BICARBONATE,VENOUS 3 mmol/l (19-25); O2 DELIVERY DEVICE ROOM AIR; O2 SATURATION VENOUS 88.2 % (60-80); PO2 VENOUS 91 mmHg (35-42)
[2025-08-24 08:26] LABS: EPITHELIAL CELLS,URINE MODERATE /HPF (NOT SEEN)
[2025-08-24 08:26] LABS: PCO2 VENOUS 19 mmHg (41-51); PH,VENOUS 6.89 (7.31-7.41)
[2025-08-24 08:46] LABS: BLOOD UREA NITROGEN,BUN 21 mg/dL (7-18)
[2025-08-24 09:24] LABS: CHLORIDE,CL 97 mmol/L (98-107); CREATININE 2.13 mg/dL (0.70-1.30); POTASSIUM,K 5.1 mmol/L (3.5-5.1); SODIUM,NA 140 mmol/L (136-145)
[2025-08-24 09:26] LABS: CARBON DIOXIDE,CO2 < 5 mmol/L (21-32)
[2025-08-24 09:27] LABS: ESTIMATED GFR 45 mL/min (>=60); GLUCOSE RANDOM 694 mg/dL (70-99)
[2025-08-24] MEDS: MVI, Adult with Vitamin K 10 ML, Folic Acid 1 MG, Thiamine 100 MG in Lactated Ringers 1... IV ONE (09:43)
[2025-08-24] MEDS: Metoprolol Tartrate 5 MG/5 ML SDV IVPUSH ONE ×2 (09:48→11:40)
[2025-08-24 09:52] LABS: IRON,FE 171.0 ug/dL (65-175); PERCENT FE SATURATION 44.3 % (20.0-50.0)
[2025-08-24] MEDS: Metoprolol Tartrate 5 MG/5 ML SDV ONE (09:52)
[2025-08-24 09:57] LABS: BASE EXCESS ARTERIAL -27 mmol/L ((-2)-(+3)); BICARBONATE,ARTERIAL 3.1 mmol/L (22-26)
[2025-08-24 09:58] LABS: O2 SATURATION ARTERIAL 96 % (95-100); PO2 ARTERIAL 105 mmHg (70-100)
[2025-08-24 09:59] LABS: PCO2 ARTERIAL 12 mmHg (35-45)
[2025-08-24 10:00] LABS: PH,ARTERIAL 7.04 (7.35-7.45)
[2025-08-24 10:01] LABS: INR 1.0 (0.9-1.2)
[2025-08-24] MEDS: Heparin Sodium 5,000 Units/ML Vial SUBCUT SCH (10:14)
[2025-08-24 10:23] LABS: FOLIC ACID 12.8 ng/mL (8.6-58.9); GAMMA GLUTAMYL TRANSFERASE,GGT 45.0 U/L (15-85); T4 FREE 0.78 ng/dL (0.76-1.46); TSH ULTRASENSITIVE 2.25 uIU/mL (0.36-3.74)
[2025-08-24 11:15] LABS: BLOOD UREA NITROGEN,BUN 18.0 mg/dL (7-18); CHLORIDE,CL 104.0 mmol/L (98-107); CREATININE 2.05 mg/dL (0.70-1.30); EST CRCL DRUG DOSING (CG) 61.73 mL/min; GLUCOSE RANDOM 299.0 mg/dL (70-99); POTASSIUM,K 4.4 mmol/L (3.5-5.1); SODIUM,NA 148.0 mmol/L (136-145)
[2025-08-24 11:29] LABS: CARBON DIOXIDE,CO2 8.0 mmol/L (21-32); ESTIMATED GFR 47.0 mL/min (>=60)
[2025-08-24 13:23] LABS: BLOOD UREA NITROGEN,BUN 15.0 mg/dL (7-18); CARBON DIOXIDE,CO2 12.0 mmol/L (21-32); CHLORIDE,CL 106.0 mmol/L (98-107); CREATININE 1.9 mg/dL (0.70-1.30); EST CRCL DRUG DOSING (CG) 66.6 mL/min; ESTIMATED GFR 51.0 mL/min (>=60); GLUCOSE RANDOM 179.0 mg/dL (70-99); POTASSIUM,K 4.3 mmol/L (3.5-5.1); SODIUM,NA 147.0 mmol/L (136-145)
[2025-08-24 13:37] LABS: PHOSPHORUS 1.8 mg/dL (2.6-4.7)
[2025-08-24 13:38] LABS: CREATINE KINASE,CK > 7000 U/L (39-308)
[2025-08-24 14:35] LABS: O2 DELIVERY DEVICE ROOM AIR
[2025-08-24 14:37] LABS: O2 DELIVERY DEVICE PARTIAL REBREATHER
[2025-08-24] MEDS: Potassium Phosphates 15 MMOLE in Sodium Chloride 0.9% 100 ML IV ONE (14:37)
[2025-08-24 14:42] LABS: O2 SATURATION ARTERIAL 97 % (95-100); PCO2 ARTERIAL 22 mmHg (35-45); PH,ARTERIAL 7.42 (7.35-7.45); PO2 ARTERIAL 79 mmHg (70-100)
[2025-08-24 14:43] LABS: BASE EXCESS ARTERIAL -9 mmol/L ((-2)-(+3)); BICARBONATE,ARTERIAL 14.1 mmol/L (22-26)
[2025-08-24] MEDS ORDERED: fentaNYL 100 MCG/2 ML SDV ONE (14:52)
[2025-08-24 15:15] LABS: BLOOD UREA NITROGEN,BUN 13.0 mg/dL (7-18); CARBON DIOXIDE,CO2 19.0 mmol/L (21-32); CHLORIDE,CL 105.0 mmol/L (98-107); CREATININE 1.94 mg/dL (0.70-1.30); EST CRCL DRUG DOSING (CG) 65.23 mL/min; GLUCOSE RANDOM 249.0 mg/dL (70-99); POTASSIUM,K 3.9 mmol/L (3.5-5.1); SODIUM,NA 146.0 mmol/L (136-145)
[2025-08-24 15:22] LABS: ESTIMATED GFR 50.0 mL/min (>=60)
[2025-08-24] MEDS ORDERED: LORazepam 2 MG/ML SDV ONE (15:40)
[2025-08-24] MEDS ORDERED: Potassium Phosphates 15 MMOLE in Sodium Chloride 0.9% 500 ML IV ONE (15:41)
[2025-08-24 17:16] LABS: BLOOD UREA NITROGEN,BUN 12.0 mg/dL (7-18); CARBON DIOXIDE,CO2 24.0 mmol/L (21-32); CHLORIDE,CL 105.0 mmol/L (98-107); CREATININE 1.89 mg/dL (0.70-1.30); EST CRCL DRUG DOSING (CG) 66.96 mL/min; ESTIMATED GFR 52.0 mL/min (>=60); GLUCOSE RANDOM 303.0 mg/dL (70-99); POTASSIUM,K 3.9 mmol/L (3.5-5.1); SODIUM,NA 147.0 mmol/L (136-145)
[2025-08-24 17:29] LABS: LACTIC ACID 7.6 mmol/L (0.4-2.0)
[2025-08-27 05:47] LABS: IONIZED CA@PH7.4 1.15 mmol/L (1.09-1.30); IONIZED CALCIUM 1.15 mmol/L (1.09-1.30)
== END 2025-08-24 17:03 | DRG 871 ==
LOC: DL.ED 06:28 → DL.MS 08:06 → UNDOADMIN 08:06
PROVIDERS: ADMIT Internal Medicine; ATTEND Internal Medicine
PROC: 3E03329 Introduction of Other Anti-infective into Peripheral Vein, Percutaneous Approach (ICD-10-PCS; principal; 2025-08-24)
PROC: 0T9B70Z Drainage of Bladder with Drainage Device, Via Natural or Artificial Opening (ICD-10-PCS; 2025-08-24)
PROC: 5A1935Z Respiratory Ventilation, Less than 24 Consecutive Hours (ICD-10-PCS; 2025-08-24)
PROC: 0BH17EZ Insertion of Endotracheal Airway into Trachea, Via Natural or Artificial Opening (ICD-10-PCS; 2025-08-24)
PROC: 02HV33Z Insertion of Infusion Device into Superior Vena Cava, Percutaneous Approach (ICD-10-PCS; 2025-08-24)
DX: A41.9 Sepsis, unspecified organism (principal); E10.10 Type 1 diabetes mellitus with ketoacidosis without coma; R79.89 Other specified abnormal findings of blood chemistry; I21.A1 Myocardial infarction type 2; Z86.16 Personal history of COVID-19; G92.8 Other toxic encephalopathy; E24.9 Cushing's syndrome, unspecified; N17.9 Acute kidney failure, unspecified; E87.1 Hypo-osmolality and hyponatremia; E86.0 Dehydration; G40.909 Epilepsy, unspecified, not intractable, without status epilepticus; E87.5 Hyperkalemia; E83.39 Other disorders of phosphorus metabolism; E83.41 Hypermagnesemia; E86.1 Hypovolemia; D64.9 Anemia, unspecified; H54.7 Unspecified visual loss; F41.9 Anxiety disorder, unspecified; Z79.4 Long term (current) use of insulin; Z79.899 Other long term (current) drug therapy
CPT/HCPCS: 36415; 36569; 36600; 51702; 70450; 71045; 71250; 74176; 80048; 80053; 80143; 80164; 80165; 80179; 80305-QW; 80307; 81001; 82009; 82140; 82330; 82550; 82607; 82746; 82803; 82947; 82977; 83540; 83550; 83605; 83690; 83735; 84100; 84145; 84439; 84443; 84484; 85025; 85610; 87040; 87428-QW; 93005; 94002; 94003; 96361; 96374; 96375; 96376; 99285; 99285-25; A9270-GY; C1758; J0616; J0696; J1644; J1808; J1953; J2060; J2543; J3373; J3411; J3486; J3490; J7030; J7050; J7070; J7120